=== PATIENT | male | born 1980 | race African-American/Black ===

== ENCOUNTER 2021-04-14 19:11 | Emergency (ER) | payer OTHER, SELFPAY ==
[2021-04-14 19:20] VITALS: BP 116/74; PULSE 63; RESP 16; TEMP 36.6; O2SAT 98; BMI 29.7
--- NOTE | 2021-04-14 20:12 | ED.URI ---
HPI - URI/Sore Throat General Chief Complaint: Upper Respiratory Symptoms Stated Complaint: trouble swallowing Time Seen by Provider: 04/14/21 20:00 Source: patient Mode of arrival: ambulatory Limitations: no limitations History of Present Illness HPI Narrative: Patient nondistended against COVID-19 comes here for sore throat with painful swallowing for last 3 days no fever no shortness of breath or body aches Related Data Previous Rx's Medication Instructions Recorded amoxicillin 875 mg-potassium 1 tab PO BID #20 tab 04/14/21 clavulanate 125 mg tablet (Augmentin) Allergies Allergy/AdvReac Type Severity Reaction Status Date / Time No Known Allergies Allergy Verified 04/14/21 19:23 Review of Systems Review of Systems: Yes all other systems are reviewed and are negative [facility] Social History Social History Advance Directives: No Advance Directives Information Provided: No Physical Exam Vital Signs: Vital Signs: Last Vital Signs Temp 98 F 04/14/21 19:20 Pulse 63 04/14/21 19:20 Resp 16 04/14/21 19:20 BP 116/74 04/14/21 19:20 Pulse Ox 98 04/14/21 19:20 Body Mass Index 29.7 Const: General: comfortable HENMT: Mouth: Normal oral and palatal mucosa present Throat: Yes posterior oropharynx abnormal (Slight erythema) and Yes postnasal drainage Resp: Effort & Inspection: normal respiratory effort Auscultation: clear to auscultation bilaterally Cardio: Rate: regular rate Rhythm: regular rhythm Heart sounds: S1 normal heart sound present and S2 normal heart sound present MDM - URI/Sore Throat Differential Diagnosis Differential diagnosis: Likely upper respiratory infection Lab Data Attestation: I reviewed the patient's lab results. Labs: Lab Results 04/14/21 04/14/21 Range/Units 20:00 20:00 COVID-19 (ALCIDES) Negative (Negative) COVID-19 Clin Com See Note S. pyogenes GrpA HANK Negative (Negative) Discharge Plan Discharge Clinical Impression: Upper respiratory infection Qualifiers: URI type: acute nasopharyngitis (common cold) Qualified Code(s): J00 - Acute nasopharyngitis [common cold] Patient Disposition: Home, Self-Care Instructions: Upper Respiratory Infection (ED) Additional Instructions: Your strep and COVID-19 is negative Take antibiotic as advised Prescriptions: New amoxicillin-pot clavulanate [Augmentin] 875-125 mg tablet 1 tab PO BID Qty: 20 RF: 0
[2021-04-14 20:20] LABS: IDNOW Serial# 08D9AD1C; Strep A Nucleic Acid Negative (Negative)
[2021-04-14 20:27] LABS: COVID-19 Test Negative (Negative); IDNOW Serial# 9DD0AD1C
== END 2021-04-14 20:55 | disposition home or self-care (01) ==
PROVIDERS: Emergency Provider Internal Medicine
DX: J00 Acute nasopharyngitis [common cold] (principal); Z20.822 Contact with and (suspected) exposure to COVID-19
CPT/HCPCS: 36415; 87635; 87651; 99283

== ENCOUNTER 2021-07-29 04:29 | Emergency (ER) | payer OTHER, SELFPAY ==
[2021-07-29 04:31] VITALS: BP 130/74; PULSE 68; RESP 18; TEMP 36.8; O2SAT 96; BMI 29.8
[2021-07-29 04:47] LABS: COVID-19 Test Positive (Negative)
== END 2021-07-29 06:29 | disposition left against medical advice (07) ==
PROVIDERS: Emergency Provider Emergency Medicine
DX: U07.1 COVID-19 (principal)
CPT/HCPCS: 36415; 87635; 99282; 99283

== ENCOUNTER 2021-08-23 08:50 | Emergency (ER) | payer OTHER, SELFPAY ==
--- NOTE | ~2021-08-23 | XR_ITS ---
EXAMINATION: XR KNEE, LEFT CLINICAL INFORMATION: Pain and swelling COMPARISON: 01/19/2020 TECHNIQUE: Four views of the left knee. FINDINGS: No fracture or dislocation. Moderate tricompartmental degenerative changes with cartilage space narrowing and marginal osteophyte formation. Small suprapatellar joint effusion. XR/XR knee LT 4V IMPRESSION: Moderate tricompartmental degenerative changes. Suspect a suprapatellar joint effusion.
[2021-08-23 08:56] VITALS: BP 148/97; PULSE 80; RESP 18; TEMP 36.8; O2SAT 97; BMI 28.3
--- NOTE | 2021-08-23 09:24 | ED.LOWEXIN ---
HPI - Extremity Injury (Lower) General Chief Complaint: Extremity Injury, Lower Stated Complaint: Swollen l leg Time Seen by Provider: 08/23/21 09:23 Source: patient Mode of arrival: ambulatory Limitations: no limitations History of Present Illness HPI Narrative: 41-year-old male with a history of arthritis in his left knee and a history of fluid in his left knee presents for left knee swelling that started yesterday. It is hard for him to bend his leg, the last time this happened was 8 months ago, and the last time before that was 1 year ago. 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 He was referred to Orthopedics but was unable to see Orthopedics due to his work schedule. No trauma Related Data Previous Rx's Medication Instructions Recorded amoxicillin 875 mg-potassium 1 tab PO BID #20 tab 04/14/21 clavulanate 125 mg tablet (Augmentin) prednisone 20 mg tablet 60 mg PO DAILY 5 Days #15 tab 08/23/21 Allergies Allergy/AdvReac Type Severity Reaction Status Date / Time No Known Allergies Allergy Verified 08/23/21 08:56 Review of Systems Review of Systems: Constitutional : No Weight loss, No Fever, No Chills, No Night Sweats,No Fatigue, No Malaise ENT/Mouth : No Hearing loss, No Ear Pain, No Nasal Congestion, NoSinus Pain, No Hoarseness, No sore throat, No Rhinorrhea, NoSwallowing Difficulty Eyes: No Eye Pain, No Swelling, No Redness, No Foreign Body, NoDischarge, No Vision Changes Cardiovascular : No Chest Pain, No SOB, No Dyspnea on Exertion, NoOrthopnea, No Edema, No Palpitations Respiratory : No Cough, No Sputum, No Wheezing, No Smoke Exposure, No Dyspnea Gastrointestinal : No Nausea, No Vomiting, No Diarrhea, NoConstipation, No abdominal Pain, No Hematochezia, No Melena Genitourinary : no irregular bleeding, No Dysuria, No UrinaryFrequency, No Hematuria, No Urinary Incontinence, No Urgency, No FlankPain, No Urinary Flow Changes, No Hesitancy Musculoskeletal : left knee pain, left knee swelling Skin : No Skin Lesions, No rash Neuro : No Weakness, No Numbness, No Paresthesias, No Loss ofConsciousness, No Dizziness, No Headache Psych : No Anxiety/Panic, No Depression, No SI/HI/AH/VH, No Social Issues, Heme/Lymph: No Bruising, No Bleeding,No Lymphadenopathy Endocrine : No Polyuria, No Polydipsia, No Temperature Intolerance Yes all other systems are reviewed and are negative PMFSH Social History Social History Advance Directives: No Advance Directives Information Provided: No Physical Exam Vital Signs: Vital Signs: Last Vital Signs Temp 98.2 F 08/23/21 08:56 Pulse 80 08/23/21 08:56 Resp 18 08/23/21 08:56 BP 148/97 H 08/23/21 08:56 Pulse Ox 97 08/23/21 08:56 BMI result Body Mass Index 28.3 Const: General: cooperative, no acute distress, well developed, alert and awake Nutritional Appearance: well nourished Orientation/consciousness: patient oriented x3 Limitations: no limitations HENMT: Head: Yes normal to inspection, Yes normocephalic and Yes atraumatic Ears: hearing grossly normal bilaterally, external ears normal, TM's normal bilaterally and EAC's normal General nose exam: Normal external nose present Face and sinus: Yes normal facial exam and Yes sinuses nontender Mouth: Normal oral and palatal mucosa present Throat: Yes posterior oropharynx normal Eyes: Conjunctivae: conjunctivae normal Pupils: Equal, round and reactive pupils present EOM: EOMs intact bilaterally Neck: Neck: Yes full ROM, Yes no lymphadenopathy and Yes supple Resp: Effort & Inspection: normal respiratory effort and able to speak in complete sentences Auscultation: clear to auscultation bilaterally, no crackles, no rales, no rhonchi and no wheezes Cardio: Rate: regular rate Rhythm: regular rhythm Heart sounds: S1 normal heart sound present and S2 normal heart sound present GI: Inspection: Yes normal to inspection Palpation (GI): Soft to palpation, nontender, no guarding and not rigid Percussion: Yes normal to percussion Auscultation: normal bowel sounds Skin: General skin exam: no rashes or lesions noted Neuro: General: patient oriented x3, tone normal and moves all extremities Cranial nerves: Yes Equal, round and reactive pupils present Extrem: Left lower extremity: full ROM, normal capillary refill and knee Details: tenderness Location: of the lateral joint line and of the pre-patellar area, swelling Location: of the patella (suprapatellar) and of the popliteal fossa and warmth Location: laterally (mild); No no edema Psych: Appearance: grossly normal Affect: normal affect Attitude: cooperative Thought process: Normal thought process present Course Course Course Narrative: 41-year-old male with history of left knee effusion and possible left knee arthritis presents with left knee pain and mild swelling. on exam, patient has mild joint effusion over left prepatellar area, with lateral joint line tenderness. Patient has intact lower extremity motor strength, sensation, DTRs, and distal pulses. Patient is able to extend and flex his knee completely. XR/XR knee LT 4V IMPRESSION: Moderate tricompartmental degenerative changes. Suspect a suprapatellar joint effusion. Discussed with patient that he should see Orthopedics, patient is unable to do this due to work schedule. Provided knee immobilizer, crutches, prednisone. Counseled return to be seen if pain worsens, or joint becomes red hot or more swollen. Patient had all his questions answered, verbalized agreement and understanding of the plan knee immobilizer, crutches, counseled RICE, prednisone Discharge Plan Discharge Clinical Impression: Effusion of knee joint, left Patient Disposition: Home, Self-Care Instructions: Swollen Knee Joint (ED), R.I.C.E. Treatment (ED) Additional Instructions: please rest, ice, and compress your knee with the knee immobilizer. Please use your crutches as much as possible. As we discussed, you will need to see orthopedics sometime in the future. I would refer you to them today but your work schedule not permit it if you have sudden left leg weakness, fevers, redness swelling or warmth over your left knee, please return to be seen please take the prednisone I prescribed in the morning with food. Please return to emergency room for any new or concerning symptoms Prescriptions: New prednisone 20 mg tablet 60 mg PO DAILY 5 Days Qty: 15 0RF No Action amoxicillin-pot clavulanate [Augmentin] 875-125 mg tablet 1 tab PO BID Qty: 20 0RF Stand Alone Forms: Work/School Release
== END 2021-08-23 10:20 | disposition home or self-care (01) ==
PROVIDERS: Emergency Provider Emergency Medicine
DX: M25.462 Effusion, left knee (principal)
CPT/HCPCS: 73564; 99283

== ENCOUNTER 2021-10-08 12:10 | Emergency (ER) | payer OTHER, SELFPAY ==
[2021-10-08 12:15] VITALS: BP 155/92; PULSE 69; RESP 20; TEMP 37.1; O2SAT 97; BMI 29.7
--- NOTE | 2021-10-08 13:16 | ED_ITS ---
HPI - General Adult General Chief complaint: Allergic Reaction Stated complaint: allergic reaction/rash Time Seen by Provider: 10/08/21 13:16 Source: patient Mode of arrival: ambulatory Limitations: no limitations History of Present Illness HPI narrative: Patient with a few days of itching to arms, legs and buttocks. He has a history of severe eczema. Despite taking benadryl and cortisone he has had no relief. Onset (ago): day(s) Location: chest, back, upper extremity and lower extremity Severity: moderate Pain Consistency: intermittent Relieving factors: none Associated symptoms: denies other symptoms Related Data Previous Rx's Medication Instructions Recorded amoxicillin 875 mg-potassium 1 tab PO BID #20 tab 04/14/21 clavulanate 125 mg tablet (Augmentin) prednisone 20 mg tablet 60 mg PO DAILY 5 Days #15 tab 08/23/21 hydroxyzine pamoate 25 mg capsule 25 mg PO TID PRN #14 cap 10/08/21 (Vistaril) prednisone 20 mg tablet 60 mg PO DAILY #15 tab 10/08/21 Allergies Allergy/AdvReac Type Severity Reaction Status Date / Time No Known Allergies Allergy Verified 08/23/21 08:56 Review of Systems Constitutional: Constitutional: Reports no additional constitutional complaints Eyes: Eyes: Reports no additional eye complaints ENT: Denies dizziness Cardiovascular: Cardiovascular: Reports no additional cardiovascular complaints Respiratory: Respiratory: Reports as per HPI Gastrointestinal: Gastrointestinal: Reports no additional gastrointestinal complaints Musculoskeletal: Musculoskeletal: Reports no additional musculoskeletal complaints Integumentary/Breasts: Skin/Breast: Denies rash Neurologic: Reports system reviewed and no additional complaints, except as documented, Denies dizziness and Denies Sensory deficit (Neuro) Psychiatric: Psychiatric: Denies anxiety [facility] Social History Social History Advance Directives: No Advance Directives Information Provided: No Physical Exam ED Vital Signs: Vital Signs - 24 hr 10/08/21 12:15 Temperature 98.8 F Pulse Rate 69 Respiratory Rate 20 Blood Pressure 155/92 H Pulse Oximetry 97 BMI result Body Mass Index 29.7 Const General: healthy appearing Nutritional Appearance: average body habitus Orientation/consciousness: oriented to person and patient oriented x3 Limitations: no limitations HENMT Head: Yes normal to inspection Ears: external ears normal General nose exam: Normal external nose present Mouth: Normal oral and palatal mucosa present and oropharynx normal Throat: Yes posterior oropharynx normal Eyes General: appearance normal, both eyes and all related structures Neck Neck: Yes normal visual inspection Chest Chest palpation & inspection: normal inspection of the chest Resp Auscultation: clear to auscultation bilaterally Cardio Jugular venous distension: no JVD Rate: regular rate Rhythm: regular rhythm Heart sounds: S1 normal heart sound present and S2 normal heart sound present GI Inspection: Yes normal to inspection Palpation (GI): Soft to palpation, nontender and No hepatosplenomegaly present Auscultation: normal bowel sounds General: Yes no CVA tenderness Back/Spine/Pelvis Back: no CVA tenderness Skin Other: small areas of papules no diffuse break out Neuro General: oriented to person and patient oriented x3 Cranial nerves: Yes CN's II-XII intact bilaterally Motor exam (neuro): 5/5 motor strength present throughout Sensory Exam: No Sensory deficit (Neuro) Extrem General: Yes normal to inspection Psych Appearance: grossly normal Course Reevaluation(s) Reevaluation #1: I believe this is an eczema breakout and we will start prednisone and visatril Time: 13:24 Discharge Plan Discharge Clinical Impression: Eczema Patient Disposition: Home, Self-Care Instructions: Dermatitis (ED) Prescriptions: New prednisone 20 mg tablet 60 mg PO DAILY Qty: 15 0RF hydroxyzine pamoate [Vistaril] 25 mg capsule 25 mg PO TID PRN (Reason: itching) Qty: 14 0RF No Action amoxicillin-pot clavulanate [Augmentin] 875-125 mg tablet 1 tab PO BID Qty: 20 0RF prednisone 20 mg tablet 60 mg PO DAILY 5 Days Qty: 15 0RF Referrals: Physician,None [Primary Care Provider] - 10 days
== END 2021-10-08 13:31 | disposition home or self-care (01) ==
PROVIDERS: Emergency Provider Emergency Medicine
DX: L30.9 Dermatitis, unspecified (principal)
CPT/HCPCS: 99283

== ENCOUNTER 2021-10-27 06:54 | Emergency (ER) | payer OTHER, SELFPAY ==
[2021-10-27 07:04] VITALS: BP 138/75; PULSE 55; RESP 16; TEMP 37.1; O2SAT 97; BMI 30.9
--- NOTE | 2021-10-27 09:09 | ED.GENADULT ---
HPI - General Adult General Chief complaint: General Medical Stated complaint: rash Time Seen by Provider: 10/27/21 09:04 Source: patient Mode of arrival: ambulatory Limitations: no limitations History of Present Illness HPI narrative: 41-year-old male with a history of eczema here with reports of eczema symptoms for the last 2 days. Patient tells me he does not have a primary care doctor or satellite communications operator. He was seen here several weeks ago for similar symptoms and had a course of prednisone which seemed to help his symptoms. Patient denies using any topical steroids. He does try to limit bathing, use cool water and apply moisturizers. Related Data Previous Rx's Medication Instructions Recorded amoxicillin 875 mg-potassium 1 tab PO BID #20 tab 04/14/21 clavulanate 125 mg tablet (Augmentin) prednisone 20 mg tablet 60 mg PO DAILY 5 Days #15 tab 08/23/21 hydroxyzine pamoate 25 mg capsule 25 mg PO TID PRN #14 cap 10/08/21 (Vistaril) prednisone 20 mg tablet 60 mg PO DAILY #15 tab 10/08/21 hydrocortisone 2.5 % topical cream 1 appl TOPICAL QID PRN #453.6 g 10/27/21 prednisone 20 mg tablet 60 mg PO DAILY #15 tab 10/27/21 Allergies Allergy/AdvReac Type Severity Reaction Status Date / Time No Known Allergies Allergy Verified 10/27/21 07:07 Review of Systems Review of Systems: Yes all other systems are reviewed and are negative Constitutional: Constitutional: Reports no additional constitutional complaints, Denies body ache(s), Denies chills, Denies fever(s), Denies headache(s) and Denies weakness Eyes: Eyes: Reports no additional eye complaints and Denies change in vision ENT: Reports system reviewed and no additional complaints, except as documented, Denies dizziness, Denies headache(s), Denies nasal congestion, Denies nasal discharge and Denies neck pain Cardiovascular: Cardiovascular: Reports no additional cardiovascular complaints, Denies chest pain, Denies leg edema and Denies dyspnea Respiratory: Respiratory: Reports no additional respiratory complaints, Denies cough and Denies dyspnea Gastrointestinal: Gastrointestinal: Reports no additional gastrointestinal complaints, Denies abdominal pain, Denies diarrhea, Denies nausea and Denies vomiting Genitourinary: Genitourinary: Denies urinary incontinence Musculoskeletal: Musculoskeletal: Reports no additional musculoskeletal complaints, Denies back pain, Denies arthralgias, Denies joint swelling, Denies neck pain, Denies numbness and Denies tingling Integumentary/Breasts: Skin/Breast: Reports system reviewed and no additional complaints, except as docu and Reports rash Neurologic: Reports system reviewed and no additional complaints, except as documented, Denies dizziness, Denies headache(s), Denies numbness, Denies tingling and Denies weakness PMFSH Past Medical History Attestation statement: The following information was validated with the patient. Source: old records reviewed and nursing notes reviewed Social History Social History Advance Directives: No Advance Directives Information Provided: No Physical Exam ED Vital Signs: Vital Signs - 24 hr 10/27/21 07:04 Temperature 98.7 F Pulse Rate 55 Respiratory Rate 16 Blood Pressure 138/75 Pulse Oximetry 97 BMI result Body Mass Index 30.9 Const General: cooperative, healthy appearing, comfortable and no acute distress Orientation/consciousness: patient oriented x3 Limitations: no limitations HENMT Head: Yes normal to inspection Ears: hearing grossly normal bilaterally General nose exam: Normal external nose present Face and sinus: Yes normal facial exam Mouth: Normal oral and palatal mucosa present Teeth and gingiva: dentition normal Throat: Yes posterior oropharynx normal Eyes General: appearance normal, both eyes and all related structures Pupils: Equal, round and reactive pupils present Neck Neck: Yes normal visual inspection, Yes full ROM, Yes no lymphadenopathy and Yes no meningeal signs Chest Chest palpation & inspection: normal inspection of the chest Resp Effort & Inspection: normal respiratory effort Cardio Peripheral pulses: Peripheral pulses 2+ throughout GI Inspection: Yes normal to inspection Back/Spine/Pelvis Thoracic/Lumbar Spine: thoracic and lumbar spine normal to inspection Skin Other: To the extremities there are eczema like like lesions over the flexor surfaces. Neuro General: patient oriented x3 and no meningeal signs Cranial nerves: Yes Equal, round and reactive pupils present Cognition (Neuro): normal cognition Course Course Course Narrative: 41-year-old male here with reports of eczema exacerbation for the last few days despite supportive care at home. Exam is consistent with eczema. Patient will be given a course of prednisone and a prescription for topical care to corticosteroid. He does have insurance but is not her primary care doctor. He recommended he establish a primary care doctor and seek a satellite communications operator. Reviewed worrisome signs and symptoms and when to return to the emergency department. Comfortable discharge home. Medical Decision Making Medical Records Medical records reviewed: Yes I reviewed the patient's medical records. Discharge Plan Discharge Clinical Impression: Atopic dermatitis Patient Disposition: Home, Self-Care Instructions: Eczema (ED), Dermatitis (ED) Additional Instructions: Limit bathing Use lukewarm water Keep moisturized with an emollient Prescriptions: New hydrocortisone 2.5 % cream 1 appl topical QID PRN (Reason: rash) Qty: 453.6 0RF prednisone 20 mg tablet 60 mg PO DAILY Qty: 15 0RF No Action amoxicillin-pot clavulanate [Augmentin] 875-125 mg tablet 1 tab PO BID Qty: 20 0RF prednisone 20 mg tablet 60 mg PO DAILY 5 Days Qty: 15 0RF prednisone 20 mg tablet 60 mg PO DAILY Qty: 15 0RF hydroxyzine pamoate [Vistaril] 25 mg capsule 25 mg PO TID PRN (Reason: itching) Qty: 14 0RF Referrals: Physician,None [Primary Care Provider] - 2 days Interventions: ED Discharge Assessment Last Done: 10/27/21 09:21 Discharge Date/Time: 10/27/21 09:22
== END 2021-10-27 09:22 | disposition home or self-care (01) ==
PROVIDERS: Emergency Provider Emergency Medicine
DX: L20.9 Atopic dermatitis, unspecified (principal); R21 Rash and other nonspecific skin eruption; Z79.899 Other long term (current) drug therapy
CPT/HCPCS: 99283

== ENCOUNTER 2022-02-05 23:34 | Observation (INO) | payer OTHER, SELFPAY ==
--- NOTE | 2022-02-05 | ECG_ITS ---
Test Reason : WEAKNESS Blood Pressure : / mmHG Vent. Rate : 057 BPM Atrial Rate : 057 BPM P-R Int : 176 ms QRS Dur : 084 ms QT Int : 452 ms P-R-T Axes : 067 064 050 degrees QTc Int : 439 ms Sinus bradycardia Otherwise normal ECG No previous ECGs available Referred By: Generic ED Physician Electronically Signed By:CATIE PINEDA MD
--- NOTE | ~2022-02-05 | CT_ITS ---
EXAMINATION: CT HEAD WITHOUT CONTRAST (STROKE PROTOCOL) INDICATION INFORMATION: Left upper extremity weakness COMPARISON: None TECHNIQUE: Noncontrast CT of the head was performed. DLP: 659 mGy-cm DOSE LOWERING TECHNIQUES: This CT examination was performed using dose optimization techniques as appropriate, variously including the following: - Automated exposure control - Adjustment of mA and/or kV according to patient size (this includes techniques or standardized protocols for targeted exams were dose is matched to indication/reason for exam; i.e. extremities or head) - Use of iterative reconstruction technique FINDINGS: There is no evidence of acute intracranial hemorrhage or territorial infarction. No abnormal mass-effect or midline shift is seen. [place]oya to white matter differentiation is well preserved. No extra-axial fluid collections are identified. The ventricles are normal in size. There is no abnormal attenuation within the brain parenchyma. The osseous structures and soft tissues are normal. The mastoid air cells and visualized portions of the paranasal sinuses are well-aerated. CT/CT head for stroke IMPRESSION: No acute intracranial findings. This stroke protocol result was discussed with Dr. Hoffman on 02/06/2022 12:18 AM.
--- NOTE | ~2022-02-05 | CT_ITS ---
EXAMINATION: CT ANGIOGRAM NECK AND HEAD CLINICAL INFORMATION: TIA COMPARISON: Noncontrast head CT from earlier today TECHNIQUE: Test bolus sequences followed by intravenous administration 70 mL of Omnipaque 350. Helical imaging was performed in the axial plane from the thoracic inlet to the skull vertex. Delayed postcontrast imaging of the head was also performed. The data was processed at the medical technologist generalist's workstation for generation of MIP sequences. Angled MIPs and volume rendered reformatted images were also generated at an offline 3D workstation. Stenoses are assessed in accordance with NASCET criteria unless otherwise indicated. DOSE LOWERING TECHNIQUES: This CT examination was performed using dose optimization techniques as appropriate, variously including the following: - Automated exposure control - Adjustment of mA and/or kV according to patient size (this includes techniques or standardized protocols for targeted exams were dose is matched to indication/reason for exam; i.e. extremities or head) - Use of iterative reconstruction technique DLP: 1518 mGy-cm FINDINGS: Neck CTA: There is a classic 3 vessel branching pattern of the aortic arch. Normal appearance of the visualized aortic arch and proximal branches. No evidence of stenosis at the branch origins. Both vertebral arteries are widely patent throughout their extracranial cervical course. Normal appearance of the common and internal carotid arteries without focal stenosis. Brain CTA: Normal appearance of the intradural vertebral arteries. Normal appearance of the basilar and superior cerebellar arteries. Normally opacified posterior communicating arteries. Normal appearance of the posterior cerebral arteries bilaterally. Normal appearance of the intradural internal carotid arteries without focal stenosis. Normal appearance of the anterior cerebral and middle cerebral arteries without focal occlusion or stenosis. Normal anterior communicating artery. Normal arborization of the middle cerebral arteries. CT Head: No intracranial mass, hemorrhage, extra-axial collection, or midline shift. The brewer-white matter differentiation is preserved. No pathologic intra-axial enhancement or regional oligemia. No hydrocephalus.. Mild mucosal thickening of the right maxillary sinus. Mastoid air cells remain well aerated. CT Neck: The thyroid gland and remaining cervical soft tissues are normal in appearance. There are mild degenerative changes of the mid to lower cervical spine with endplate osteophytes. Upper Chest: There is mild emphysema at the lung apices. CT/CT angio head neck IMPRESSION: No hemodynamically significant stenosis in the major arteries of the neck. No large vessel occlusion or significant stenosis in the intracranial circulation.
[2022-02-05 23:39] VITALS: BP 154/97; PULSE 62; RESP 15; TEMP 36.3; O2SAT 98; BMI 28.7
[2022-02-05 23:52] VITALS: PULSE 56; RESP 23; O2SAT 99
--- NOTE | 2022-02-05 23:57 | ED.NEUROSD ---
HPI - Neuro Symptoms/Deficit General Chief Complaint: Stroke Stated Complaint: Not feeling good/Bodyaches Time Seen by Provider: 02/05/22 23:57 Source: patient Mode of arrival: ambulatory History of Present Illness HPI Narrative: 41-year-old male with history of hypertension and does not take medications. states he has had a left-sided headache x3 days that is not been associated with nausea or visual disturbance and states that after going to [employer] today he developed weakness on his left side and numbness approximately 20 minutes ago. Patient is noted to be ambulatory in triage. He endorses marijuana use but denies alcohol or drug use. He otherwise denies fever, chills, chest pain/palpitations or shortness of breath. Related Data Home Medications Medication Instructions Recorded Confirmed No Known Home Meds 02/06/22 02/06/22 Allergies Allergy/AdvReac Type Severity Reaction Status Date / Time No Known Allergies Allergy Verified 10/27/21 07:07 Review of Systems Review of Systems: Pertinent positives and negatives as stated in HPI 10 point review of systems is otherwise negative. PMFSH Past Medical History Source: nursing notes reviewed Medical History (Updated 02/06/22 @ 03:18 by Shayy Hoffman MD) HTN (hypertension) Social History Social History Advance Directives: No Physical Exam Vital Signs: Vital Signs: Last Vital Signs Temp 98.2 F 02/06/22 00:17 Pulse 55 02/06/22 00:17 Resp 18 02/06/22 00:17 BP 164/98 H 02/06/22 00:10 Pulse Ox 98 02/06/22 00:17 O2 Del Method 02/06/22 00:17 BMI result Body Mass Index 28.7 VITAL SIGNS: Reviewed. GENERAL: Well developed, well nourished, in no acute distress. HEAD: Normocephalic/atraumatic EYES: PERRLA, EOMI, no nystagmus EARS: Ext canals without abnormality OROPHARYNX: no oral lesions noted, posterior pharynx clear LUNGS: Normal breath sounds. No adventitious sounds or accessory muscle use. SpO2<98> CARDIOVASCULAR: Regular rate and rhythm without noted murmurs, no JVD or lower extremity edema. ABDOMEN: Soft, non-tender, non-distended with bowel sounds. MUSCULOSKELETAL: No tenderness, deformities, or effusions noted on gross inspection. EXTREMITIES: No cyanosis, clubbing or edema. SKIN: Inspection of the skin reveals no rashes, ulcerations, jaundice, pallor, or petechiae. NEUROLOGIC: Alert and oriented x 4. No facial asymmetry, no pronator drift, however hand estimator and drafter supervisor are unequal with noted weakness in the left upper extremity, otherwise, cranial nerves 2-12 are grossly intact, heel to galdamez is noted to be intact. Course Course Course Narrative: 41-year-old male with history and clinical presentation concerning for hypertensive urgency related symptoms verses acute stroke. Stroke protocol was initiated. Review of all investigations otherwise negative for acute findings. On re-evaluation patient has had complete resolution of his symptoms and is feeling better, but concern regarding possible TIA in the setting of uncontrolled hypertension. I discussed this case with the inpatient hospitalist who accepts admission under observation. Patient was informed of all plans and results. No evidence to suggest radiculopathy. Reevaluation(s) Reevaluation #1: Radiology reports nothing acute. Time: 07:14 Reevaluation #2: I discussed case with Dr. Rhodes, and described patient's ability to control his extremity, absence of any ataxia or pronator drift and negative findings on the CT scan and the recommendation is no tPA at this time, but provided patient with aspirin due to mild findings. Time: 00:25 [facility] - Neuro Symptoms/Deficit Lab Data Result diagrams: 02/05/22 23:50 02/05/22 23:50 Labs: Lab Results 02/05/22 02/05/22 02/05/22 Range/Units 23:50 23:50 23:50 WBC 8.9 (4.8-10.8) X10*3/uL RBC 4.95 (4.60-5.80) X10*6/uL Hgb 14.2 (14.0-18.0) g/dl Hct 42.5 (42.0-52.0) % MCV 85.9 (80.0-98.0) fL MCH 28.7 (27.0-33.0) pg MCHC 33.4 (31.0-36.0) g/dl RDW 13.5 (11.0-16.0) % Plt Count 191 (160-400) X10*3/uL MPV 9.9 (9.4-12.4) fL Immature Gran % (Auto) 0.1 (0.0-0.4) % Neut % (Auto) 59.9 (45-73) % Lymph % (Auto) 29.1 (20-40) % [place] % (Auto) 9.9 (2-11) % Eos % (Auto) 0.6 (0-4) % Baso % (Auto) 0.4 (0-2) % Lymph # (Auto) 2.6 (1.2-4.9) X10*3/uL [place] # (Auto) 0.9 (0.1-1.2) X10*3/uL Eos # (Auto) 0.1 (0.0-0.4) X10*3/uL Baso # (Auto) 0.0 (0.0-0.2) X10*3/uL Abs Immat Gran (auto) 0.01 (0.00-0.03) X10*3/uL Absolute Neuts (auto) 5.3 (2.0-8.3) x10*3/uL Absolute Nucleated RBC 0.000 (0.0-0.012) X10*3/uL Nucleated RBC % (auto) 0.0 (0.0-0.2) /100WBC PT 11.7 (10.0-13.1) SEC INR 1.0 (0.9-1.1) APTT (24.1-38.0) SEC Sodium 140 (135-145) mmol/L Potassium 4.0 (3.3-5.1) mmol/L Chloride 107 (96-108) mmol/L Carbon Dioxide 25 (22-29) mmol/L Anion Gap 12 (12-20) BUN 8 L (9-16) mg/dL Creatinine 1.25 (0.5-1.4) mg/dL Estim Creat Clear Calc 89.8 Estimated GFR > 60 POC Glucose (60-115) mg/dL Random Glucose 87 (60-115) mg/dL Calcium 9.2 (8.4-10.2) mg/dL Total Bilirubin 0.6 (0.0-1.0) mg/dL AST 26 (5-37) U/L ALT 21 (0-40) U/L Alkaline Phosphatase 77 (39-117) U/L Total Creatine Kinase 414 H (38-174) U/L Troponin I High Sens (<3.5-35.0) ng/L Total Protein 7.3 (6.5-8.0) g/dL Albumin 4.7 (3.5-5.0) g/dL COVID-19 ([facility]) (Negative) COVID-19 Clin Com 02/05/22 02/05/22 02/06/22 Range/Units 23:50 23:50 00:17 WBC (4.8-10.8) X10*3/uL RBC (4.60-5.80) X10*6/uL Hgb (14.0-18.0) g/dl Hct (42.0-52.0) % MCV (80.0-98.0) fL MCH (27.0-33.0) pg MCHC (31.0-36.0) g/dl RDW (11.0-16.0) % Plt Count (160-400) X10*3/uL MPV (9.4-12.4) fL Immature Gran % (Auto) (0.0-0.4) % Neut % (Auto) (45-73) % Lymph % (Auto) (20-40) % [place] % (Auto) (2-11) % Eos % (Auto) (0-4) % Baso % (Auto) (0-2) % Lymph # (Auto) (1.2-4.9) X10*3/uL [place] # (Auto) (0.1-1.2) X10*3/uL Eos # (Auto) (0.0-0.4) X10*3/uL Baso # (Auto) (0.0-0.2) X10*3/uL Abs Immat Gran (auto) (0.00-0.03) X10*3/uL Absolute Neuts (auto) (2.0-8.3) x10*3/uL Absolute Nucleated RBC (0.0-0.012) X10*3/uL Nucleated RBC % (auto) (0.0-0.2) /100WBC PT (10.0-13.1) SEC INR (0.9-1.1) APTT 33.4 (24.1-38.0) SEC Sodium (135-145) mmol/L Potassium (3.3-5.1) mmol/L Chloride (96-108) mmol/L Carbon Dioxide (22-29) mmol/L Anion Gap (12-20) BUN (9-16) mg/dL Creatinine (0.5-1.4) mg/dL Estim Creat Clear Calc Estimated GFR POC Glucose (60-115) mg/dL Random Glucose (60-115) mg/dL Calcium (8.4-10.2) mg/dL Total Bilirubin (0.0-1.0) mg/dL AST (5-37) U/L ALT (0-40) U/L Alkaline Phosphatase (39-117) U/L Total Creatine Kinase (38-174) U/L Troponin I High Sens 8.2 (<3.5-35.0) ng/L Total Protein (6.5-8.0) g/dL Albumin (3.5-5.0) g/dL COVID-19 ([facility]) Negative (Negative) COVID-19 Clin Com See Note 02/06/22 Range/Units 00:52 WBC (4.8-10.8) X10*3/uL RBC (4.60-5.80) X10*6/uL Hgb (14.0-18.0) g/dl Hct (42.0-52.0) % MCV (80.0-98.0) fL MCH (27.0-33.0) pg MCHC (31.0-36.0) g/dl RDW (11.0-16.0) % Plt Count (160-400) X10*3/uL MPV (9.4-12.4) fL Immature Gran % (Auto) (0.0-0.4) % Neut % (Auto) (45-73) % Lymph % (Auto) (20-40) % [place] % (Auto) (2-11) % Eos % (Auto) (0-4) % Baso % (Auto) (0-2) % Lymph # (Auto) (1.2-4.9) X10*3/uL [place] # (Auto) (0.1-1.2) X10*3/uL Eos # (Auto) (0.0-0.4) X10*3/uL Baso # (Auto) (0.0-0.2) X10*3/uL Abs Immat Gran (auto) (0.00-0.03) X10*3/uL Absolute Neuts (auto) (2.0-8.3) x10*3/uL Absolute Nucleated RBC (0.0-0.012) X10*3/uL Nucleated RBC % (auto) (0.0-0.2) /100WBC PT (10.0-13.1) SEC INR (0.9-1.1) APTT (24.1-38.0) SEC Sodium (135-145) mmol/L Potassium (3.3-5.1) mmol/L Chloride (96-108) mmol/L Carbon Dioxide (22-29) mmol/L Anion Gap (12-20) BUN (9-16) mg/dL Creatinine (0.5-1.4) mg/dL Estim Creat Clear Calc Estimated GFR POC Glucose 102 (60-115) mg/dL Random Glucose (60-115) mg/dL Calcium (8.4-10.2) mg/dL Total Bilirubin (0.0-1.0) mg/dL AST (5-37) U/L ALT (0-40) U/L Alkaline Phosphatase (39-117) U/L Total Creatine Kinase (38-174) U/L Troponin I High Sens (<3.5-35.0) ng/L Total Protein (6.5-8.0) g/dL Albumin (3.5-5.0) g/dL COVID-19 ([facility]) (Negative) COVID-19 Clin Com ECG Data Attestation: I personally reviewed and interpreted this ECG as follows: Prior ECG tracings: not available for review Interpretation: Sinus bradycardia, HR-57, no STEMI, ND/QRS/QTC are within normal limits. NIH Stroke Scale Time: 23:55 Level of Consciousness: Alert Level of Consciousness Questions: Answers both questions correctly Level of Consciousness Commands: Performs both tasks correctly Best Gaze: Normal Visual: No visual loss Facial Palsy: Normal Motor Arm (Right): No drift Motor Arm (Left): No drift Motor Leg (Right): No drift Motor Leg (Left): No drift Limb Ataxia: Absent Sensory: Normal Best Language: No aphasia Dysarthia: Normal Extinction and Inattention: No abnormality Score: 0 Critical Care Time Critical Care Time Critical Care Time: Yes Total Critical Care Time: 30 Attestation: I personally attest to this time spent taking care of the patient. Discharge Plan Discharge Clinical Impression: LUE weakness, Hypertension Patient Disposition: Admitted As Inpatient Prescriptions: No Action No Known Home Meds
[2022-02-05 23:59] LABS: MANUAL DIFF FLAG NO
[2022-02-06] LABS: Basophils Percent Auto 0.4 % (0-2); Eosinophils Absolute Auto 0.1 X10*3/uL (0.0-0.4); Eosinophils Percent Auto 0.6 % (0-4); Hematocrit 42.5 % (42.0-52.0); Hemoglobin 14.2 g/dl (14.0-18.0); Imm Gran Abs Auto 0.01 X10*3/uL (0.00-0.03); Imm Gran Pct Auto 0.1 % (0.0-0.4); Lymphocytes Absolute Auto 2.6 X10*3/uL (1.2-4.9); Lymphocytes Percent Auto 29.1 % (20-40); Mean Corpuscular HGB Conc 33.4 g/dl (31.0-36.0); Mean Corpuscular Hemoglobin 28.7 pg (27.0-33.0); Mean Corpuscular Volume 85.9 fL (80.0-98.0); Mean Platelet Volume 9.9 fL (9.4-12.4); Monocytes Absolute Auto 0.9 X10*3/uL (0.1-1.2); Monocytes Percent Auto 9.9 % (2-11); Neutrophils Absolute Auto 5.3 x10*3/uL (2.0-8.3); Neutrophils Percent Auto 59.9 % (45-73); Platelet Count 191 X10*3/uL (160-400); Red Blood Count 4.95 X10*6/uL (4.60-5.80); Red Cell Distribution Width 13.5 % (11.0-16.0); White Blood Count 8.9 X10*3/uL (4.8-10.8)
[2022-02-06 00:05] LABS: Prothrombin Time 11.7 SEC (10.0-13.1)
[2022-02-06 00:07] LABS: Stroke Lab Use COMPLETE
[2022-02-06 00:10] VITALS: BP 164/98; PULSE 57; RESP 16; O2SAT 94
[2022-02-06 00:13] LABS: Partial Thromboplastin Time 33.4 SEC (24.1-38.0)
[2022-02-06 00:15] LABS: Alanine Aminotransferase 21 U/L (0-40); Albumin Level 4.7 g/dL (3.5-5.0); Alkaline Phosphatase 77 U/L (39-117); Anion Gap 12 (12-20); Aspartate Amino Transferase 26 U/L (5-37); Bilirubin Total 0.6 mg/dL (0.0-1.0); Blood Urea Nitrogen 8 mg/dL (9-16); Calcium 9.2 mg/dL (8.4-10.2); Carbon Dioxide 25 mmol/L (22-29); Chloride 107 mmol/L (96-108); Creatinine Clr Calc Pharmacy 89.8; Estimated Glomerular Filt Rate > 60; Glucose Random 87 mg/dL (60-115); Sodium 140 mmol/L (135-145); Total Protein 7.3 g/dL (6.5-8.0)
[2022-02-06 00:17] VITALS: PULSE 55; RESP 18; TEMP 36.8; O2SAT 98
[2022-02-06 00:20] LABS: Troponin-I High Sensitivity 8.2 ng/L (<3.5-35.0)
[2022-02-06 00:38] LABS: COVID-19 Test Negative (Negative)
[2022-02-06 00:57] LABS: Glucose, Whole Blood 102 mg/dL (60-115)
[2022-02-06] MEDS: Acetaminophen 325 MG TABLET 975 MG PO (01:13)
[2022-02-06] MEDS: Aspirin 81 MG TAB.CHEW PO (01:13)
[2022-02-06 03:11] VITALS: BP 148/100; PULSE 50; RESP 16; TEMP 36.6; O2SAT 98
[2022-02-06 03:13] LABS: Appearance Urine HAZY; Color Urine YELLOW; Glucose Urine UA NEG (NEG); Leukocyte Esterase Urine NEG (NEG); Nitrite Urine NEG (NEG); Urine Blood NEG (NEG); Urine Ketones NEG (NEG); Urine Protein TRACE MG/DL (NEG-TRACE)
--- NOTE | 2022-02-06 03:47 | PC.NURSE ---
Pt ambulated around ER. No trouble walking, no shortness of breath, steady gait, no lightheadedness.
[2022-02-06 04:00] VITALS: RESP 14
--- NOTE | 2022-02-06 05:33 | P.HPHOSP_ITS ---
History of Present Illness Date of Service: 02/06/22 Chief Complaint: Numbness and weakness on the left side 31-year-old male with past medical history of hypertension who stopped taking his antihypertensives about 5 years ago presents the hospital with complaints of a headache, left facial as well as upper extremity numbness, tingling, as well as weakness for several hours. Patient reports that had blurry vision, and severe left-sided headache with facial numbness, and left upper extremity numbness and weakness which concern him therefore he came to the hospital. Patient denies any slurred speech, no chest pain, no palpitations, no abdominal pain nausea or vomiting, no diarrhea constipation, no urinary symptoms and no lower extremity edema. Patient tells me that he head really high blood pressure prior to coming to the hospital, when I asked him how high he reports high . on arrival to the ED patient's vitals are significant for blood pressure of 154/97, respiratory rate of 23, otherwise vitals stable Labs reviewed, unremarkable patient reports that he is significantly better but still feels numbness of the tips of his fingers on the left neurology was consulted by ED, patient given aspirin and will be admitted for further evaluation Review of Systems Review of Systems: Yes all other systems are reviewed and are negative [facility] Medical History (Updated 02/06/22 @ 05:38 by Kimberlee Mosley MD) HTN (hypertension) Family History (Updated 02/06/22 @ 05:37 by Kimberlee Mosley MD) Father Brain aneurysm Surgical History (Updated 02/06/22 @ 05:37 by Kimberlee Mosley MD) No pertinent past surgical history Social History (Updated 02/06/22 @ 05:37 by Kimberlee Mosley MD) Alcohol intake: current Patient Tobacco Use Status: Never used Tobacco Substance Use Type: Marijuana Advance Directives: No Meds Allergies Allergy/AdvReac Type Severity Reaction Status Date / Time No Known Allergies Allergy Verified 10/27/21 07:07 Active Medications: Current Medications Acetaminophen (Acetaminophen 325 Mg Tablet) 650 mg PO Q6H PRN PRN Reason: Pain, Mild (Pain Scale 1-3) Docusate Sodium (Docusate Sodium 100 Mg Capsule) 100 mg PO DAILY PRN PRN Reason: Constipation Ondansetron HCl (Ondansetron Hcl 4 Mg/2 Ml Vial) 4 mg IVPUSH Q8H PRN PRN Reason: Nausea and Vomiting Sodium Chloride (0.9 % Sodium Chloride Flush 3 Ml Syringe) 3 ml IVFLUSH [facility] Home Medications Medication Instructions Recorded Confirmed Last Taken Type No Known Home Meds 02/06/22 02/06/22 Unknown History Physical Exam Vital Signs and Narrative: Vital Signs: Last Vital Signs Temp 97.8 F 02/06/22 03:11 Pulse 50 02/06/22 03:11 Resp 14 02/06/22 04:00 BP 148/100 H 02/06/22 03:11 Pulse Ox 98 02/06/22 03:11 O2 Del Method 02/06/22 03:11 BMI result Body Mass Index 28.7 Const: General: cooperative and no acute distress Orientation/consciousness: patient oriented x3 Eyes: General: appearance normal, both eyes and all related structures Resp: Effort & Inspection: normal respiratory effort Auscultation: clear to auscultation bilaterally Cardio: Rate: regular rate Rhythm: regular rhythm GI: Palpation (GI): Soft to palpation Auscultation: normal bowel sounds Skin: General skin exam: no rashes or lesions noted Neuro: Other: no neurological deficit cranial nerves 2-12 intact, strength is 5/5 in all extremities General: patient oriented x3 Cognition (Neuro): normal cognition Extrem: General: Yes normal to inspection and Yes no pedal edema Results Labs CBC and Chem 7: 02/05/22 23:50 02/05/22 23:50 Labs: Laboratory Results - last 24 hr 02/05/22 02/05/22 02/05/22 23:50 23:50 23:50 MCV 85.9 MCH 28.7 MCHC 33.4 RDW 13.5 Plt Count 191 MPV 9.9 Immature Gran % (Auto) 0.1 Neut % (Auto) 59.9 Lymph % (Auto) 29.1 [place] % (Auto) 9.9 Eos % (Auto) 0.6 Baso % (Auto) 0.4 Lymph # (Auto) 2.6 [place] # (Auto) 0.9 Eos # (Auto) 0.1 Baso # (Auto) 0.0 Abs Immat Gran (auto) 0.01 Absolute Neuts (auto) 5.3 Absolute Nucleated RBC 0.000 Nucleated RBC % (auto) 0.0 PT 11.7 INR 1.0 APTT Anion Gap 12 Estim Creat Clear Calc 89.8 Estimated GFR > 60 POC Glucose Random Glucose 87 Calcium 9.2 Total Bilirubin 0.6 AST 26 ALT 21 Alkaline Phosphatase 77 Total Creatine Kinase 414 H Troponin I High Sens Total Protein 7.3 Albumin 4.7 Urine Color Urine Appearance Urine pH Ur Specific [place] Urine Protein Urine Glucose (UA) Urine Ketones Urine Blood Urine Nitrite Ur Leukocyte Esterase COVID-19 ([facility]) COVID-19 Clin Com 02/05/22 02/05/22 02/06/22 23:50 23:50 00:17 MCV MCH MCHC RDW Plt Count MPV Immature Gran % (Auto) Neut % (Auto) Lymph % (Auto) [place] % (Auto) Eos % (Auto) Baso % (Auto) Lymph # (Auto) [place] # (Auto) Eos # (Auto) Baso # (Auto) Abs Immat Gran (auto) Absolute Neuts (auto) Absolute Nucleated RBC Nucleated RBC % (auto) PT INR APTT 33.4 Anion Gap Estim Creat Clear Calc Estimated GFR POC Glucose Random Glucose Calcium Total Bilirubin AST ALT Alkaline Phosphatase Total Creatine Kinase Troponin I High Sens 8.2 Total Protein Albumin Urine Color Urine Appearance Urine pH Ur Specific [place] Urine Protein Urine Glucose (UA) Urine Ketones Urine Blood Urine Nitrite Ur Leukocyte Esterase COVID-19 ([facility]) Negative COVID-19 Clin Com See Note 02/06/22 02/06/22 00:52 03:07 MCV MCH MCHC RDW Plt Count MPV Immature Gran % (Auto) Neut % (Auto) Lymph % (Auto) [place] % (Auto) Eos % (Auto) Baso % (Auto) Lymph # (Auto) [place] # (Auto) Eos # (Auto) Baso # (Auto) Abs Immat Gran (auto) Absolute Neuts (auto) Absolute Nucleated RBC Nucleated RBC % (auto) PT INR APTT Anion Gap Estim Creat Clear Calc Estimated GFR POC Glucose 102 Random Glucose Calcium Total Bilirubin AST ALT Alkaline Phosphatase Total Creatine Kinase Troponin I High Sens Total Protein Albumin Urine Color YELLOW Urine Appearance HAZY Urine pH 8.0 Ur Specific [place] 1.010 Urine Protein TRACE Urine Glucose (UA) NEG Urine Ketones NEG Urine Blood NEG Urine Nitrite NEG Ur Leukocyte Esterase NEG COVID-19 ([facility]) COVID-19 Clin Com Imaging Radiologist's Impressions: Impressions Head CT 02/06/22 00:06 IMPRESSION: No acute intracranial findings. This stroke protocol result was discussed with Dr. Hoffman on 02/06/2022 12:18 AM. Assessment and Plan (1) TIA (transient ischemic attack): Status: Acute (2) LUE weakness: Status: Acute (3) Headache: Status: Acute (4) Hypertension: Status: Acute Plan 41-year-old male with past medical history of hypertension presents to the hospital with TIA like symptoms # TIA - had numbness, weakness of the left upper extremity as well as facial numbness and tingling - reports hypertension - symptoms have not resolved - head CT negative - will obtain head and neck CTA - aspirin, statin - neurology consulted - hold off on MRI until neurology evaluation # hypertension - elevated - patient reports that he stop taking his antihypertensives about 5 years ago on his own - will monitor his BP in-patient, may require and antihypertensive prior to d ischarge dvt ppx; early ambulation Quality Stroke Does the patient have a stroke diagnosis?: No VTE Prior VTE?: No VTE Risk Level:: Medical - low VTE Device Contraindication: Treatment Not Indicated VTE Drug Contraindication: Treatment Not Indicated
[2022-02-06] MEDS: iohexoL 350 MG/ML 100 ML INFUS..BTL IV (06:05)
[2022-02-06 06:24] LABS: MANUAL DIFF FLAG NO
[2022-02-06 06:25] LABS: Basophils Percent Auto 0.4 % (0-2); Eosinophils Absolute Auto 0.1 X10*3/uL (0.0-0.4); Eosinophils Percent Auto 1.3 % (0-4); Hematocrit 40.7 % (42.0-52.0); Hemoglobin 13.4 g/dl (14.0-18.0); Imm Gran Abs Auto 0.01 X10*3/uL (0.00-0.03); Imm Gran Pct Auto 0.1 % (0.0-0.4); Lymphocytes Absolute Auto 2.6 X10*3/uL (1.2-4.9); Lymphocytes Percent Auto 34.6 % (20-40); Mean Corpuscular HGB Conc 32.9 g/dl (31.0-36.0); Mean Corpuscular Hemoglobin 28.7 pg (27.0-33.0); Mean Corpuscular Volume 87.2 fL (80.0-98.0); Monocytes Absolute Auto 0.8 X10*3/uL (0.1-1.2); Monocytes Percent Auto 10.6 % (2-11); Neutrophils Absolute Auto 4.1 x10*3/uL (2.0-8.3); Platelet Count 178 X10*3/uL (160-400); Red Blood Count 4.67 X10*6/uL (4.60-5.80); Red Cell Distribution Width 13.5 % (11.0-16.0); White Blood Count 7.6 X10*3/uL (4.8-10.8)
[2022-02-06 06:47] LABS: Anion Gap 8 (12-20); Blood Urea Nitrogen 8 mg/dL (9-16); Calcium 8.4 mg/dL (8.4-10.2); Carbon Dioxide 24 mmol/L (22-29); Chloride 107 mmol/L (96-108); Creatinine Clr Calc Pharmacy 96.8; Estimated Glomerular Filt Rate > 60; Glucose Random 91 mg/dL (60-115); Sodium 135 mmol/L (135-145)
[2022-02-06 06:52] LABS: Cholesterol 148 mg/dL; HDL Cholesterol 36 mg/dL; LDL Cholesterol Calculated 88 mg/dl; Triglycerides 121 mg/dL
[2022-02-06 07:09] VITALS: BP 174/105; PULSE 49; RESP 12; O2SAT 99
[2022-02-06 07:14] LABS: Glucose, Whole Blood 91 mg/dL (60-115)
[2022-02-06] MEDS: Aspirin Enteric Coated 81 MG TABLET.DR PO (08:01)
[2022-02-06] MEDS: Atorvastatin Calcium 40 MG TABLET PO (08:01)
[2022-02-06] MEDS: 0.9 % Sodium Chloride Flush 3 ML SYRINGE IVFLUSH (08:02)
--- NOTE | 2022-02-06 08:18 | PC.NURSE ---
Pt is A&Ox4, LCA, abd soft, non tender, +BS x4, no complaints of pain, tingling or numbness at this time. Pt questioning POC at this time, explained awaiting Neuro consult and he is admitted as obs patient at this time. Call adkins within reach, medicated as per [facility] orders. Will continue to monitor.
--- NOTE | 2022-02-06 09:39 | P.CNNE_ITS ---
History of Present Illness Data of Consult Service Date: 02/06/22 Primary Care Provider: Unknown Physician HPI Reason for consult: Left-sided numbness 41 years old man with previous history of hypertension but he was not taking any medicine for it stating that the medicine given to him previously resulted in side effects. He has been admitted in a hospital in [place] couple of years ago with similar symptoms and presentation. He was told that he should take a blood pressure medicine but he could not continue it. This time he was here with new onset of left-sided numbness. Numbness started in left side of the face and in about 6-7 minutes extended to involve the whole left side and lasted for few minutes. He thought he was having a stroke and came to emergency room. In emergency room his exam was nonfocal but he had full stroke workup done. Now he was feeling fine. Upon questioning, he also said that after the numbness was all over he had whopping headache in his whole head CT that lasted for few hours. He was not having frequent headaches. There was no recent cold or flu- like illness. Review of Systems Review of Systems: No recent cold or flu-like illness PMFSH Past Medical History Medical History (Updated 02/06/22 @ 09:42 by Angela Rhodes MD) HTN (hypertension) Family History Family History (Updated 02/06/22 @ 05:37 by Kimberlee Mosley MD) Father Brain aneurysm Surgical History Surgical History (Updated 02/06/22 @ 05:37 by Kimberlee Mosley MD) No pertinent past surgical history Social History Social History (Updated 02/06/22 @ 05:37 by Kimberlee Mosley MD) Alcohol intake: current Patient Tobacco Use Status: Never used Tobacco Substance Use Type: Marijuana Advance Directives: No Meds Allergies Allergy/AdvReac Type Severity Reaction Status Date / Time No Known Allergies Allergy Verified 10/27/21 07:07 Active Medications: Current Medications Acetaminophen (Acetaminophen 325 Mg Tablet) 650 mg PO Q6H PRN PRN Reason: Pain, Mild (Pain Scale 1-3) Aspirin (Aspirin Enteric Coated 81 Mg Tablet.) 81 mg PO DAILY [facility] Last Admin: 02/06/22 08:01 Dose: 81 mg Atorvastatin Calcium (Atorvastatin Calcium 40 Mg Tablet) 40 mg PO DAILY [facility] Last Admin: 02/06/22 08:01 Dose: 40 mg Docusate Sodium (Docusate Sodium 100 Mg Capsule) 100 mg PO DAILY PRN PRN Reason: Constipation Ondansetron HCl (Ondansetron Hcl 4 Mg/2 Ml Vial) 4 mg IVPUSH Q8H PRN PRN Reason: Nausea and Vomiting Sodium Chloride (0.9 % Sodium Chloride Flush 3 Ml Syringe) 3 ml IVFLUSH QSHIFT HEATHER Last Admin: 02/06/22 08:02 Dose: 3 ml Home Medications Medication Instructions Recorded Confirmed Last Taken Type No Known Home Meds 02/06/22 02/06/22 Unknown History Physical Exam Vital Signs: Vital Signs: Last Vital Signs Temp 97.8 F 02/06/22 03:11 Pulse 49 L 02/06/22 07:09 Resp 12 02/06/22 07:09 BP 174/105 H 02/06/22 07:09 Pulse Ox 99 02/06/22 07:09 O2 Del Method 02/06/22 07:09 BMI result Body Mass Index 28.7 Neuro: Other: Alert and awake with normal spontaneity of speech fluency comprehension and affect. Face was symmetrical. Visual andrade are full. There was no pronator drift. Deep tendon reflexes were trace to 1+ with flexor plantars. Speech was normal. Results Labs CBC & Chem 7: 02/06/22 06:19 02/06/22 06:19 Labs: Short CBC 02/05/22 02/06/22 Range/Units 23:50 06:19 WBC 8.9 7.6 (4.8-10.8) X10*3/uL Hgb 14.2 13.4 L (14.0-18.0) g/dl Hct 42.5 40.7 L (42.0-52.0) % Plt Count 191 178 (160-400) X10*3/uL BMP 02/05/22 02/06/22 23:50 06:19 Sodium 140 135 Potassium 4.0 4.0 Chloride 107 107 Carbon Dioxide 25 24 BUN 8 L 8 L Creatinine 1.25 1.16 Calcium 9.2 8.4 D Cardiac Enzymes 02/05/22 Range/Units 23:50 Total Creatine Kinase 414 H (38-174) U/L Liver Function 02/05/22 Range/Units 23:50 Total Bilirubin 0.6 (0.0-1.0) mg/dL AST 26 (5-37) U/L ALT 21 (0-40) U/L Alkaline Phosphatase 77 (39-117) U/L Albumin 4.7 (3.5-5.0) g/dL Urine 02/06/22 Range/Units 03:07 Urine Color YELLOW Urine Appearance HAZY Urine pH 8.0 (5.0-8.0) Ur Specific [place] 1.010 (1.005-1.025) Urine Protein TRACE (NEG-TRACE) MG/DL Urine Glucose (UA) NEG (NEG) MG/DL Noncontrast head CT was unremarkable. CTA of brain and neck did not reveal any significant abnormality. Assessment and Plan (1) Migraine with aura: Status: Acute 41 years old man who has clinical presentation was typical of migraine with aura. He was educated about this condition and was advised to avoid getting panicky and get treatment for migraine. At this time I only recommend sumatriptan 50 mg as needed, provided he would also take a blood pressure medicine. (2) Uncontrolled hypertension: Status: Acute His blood pressure was not controlled and previously given blood pressure medicine has resulted in side effects. I am not sure what medicine he was given and he did not remember. My suggestion is to start him on either a beta-yancy or calcium channel yancy such as were up. He should follow-up with his primary care physician and get appropriate follow-up and treatment for hypertension. Procedures Date of Service Date of Service: 02/06/22
[2022-02-06 10:31] VITALS: BP 164/99; PULSE 48; RESP 14; TEMP 36.7; O2SAT 97
--- NOTE | 2022-02-06 12:14 | PM.DS ---
DS: Providers Provider Date of Service: 02/06/22 Date of admission: 02/06/22 05:29 Date of discharge: 02/06/22 Primary care physician: Unknown Physician Consults: 02/06/22 05:31 Consult to Neurology Routine Consulting Provider: [facility] Reason for consultation: TIA Attending physician on discharge: Raffaele Rajan Discharging clinician: Anuja Philip DS: Diagnosis Discharge Diagnosis (1) Migraine with aura: Status: Acute (2) Uncontrolled hypertension: Status: Acute DS: Summary Hospital Course Hospital Course: From H&P on day of admission 31-year-old male with past medical history of hypertension who stopped taking his antihypertensives about 5 years ago presents the hospital with complaints of a headache, left facial as well as upper extremity numbness, tingling, as well as weakness for several hours.? Patient reports that had blurry vision, and severe left-sided headache with facial numbness, and left upper extremity numbness and weakness which concern him therefore he came to the hospital.? Patient denies any slurred speech, no chest pain, no palpitations, no abdominal pain nausea or vomiting, no diarrhea constipation, no urinary symptoms and no lower extremity edema.? Patient tells me that he? head really high blood pressure prior to coming to the hospital, when I asked him how high he reports high . ?on arrival to the ED patient's vitals are significant for blood pressure of 154/97, respiratory rate of 23, otherwise vitals stable Labs? reviewed, unremarkable ?patient reports that he is significantly better but still feels numbness of the tips of his fingers on the left ?neurology was consulted by ED, patient given aspirin and will be? admitted for further evaluation Left-sided numbness/weakness/headache. Brain CT, head and neck CTA unremarkable. Documented to the have mild left-sided weakness which had resolved at the time of admission. He was seen in consultation by Neurology who felt that his symptoms were secondary to migraine. His symptoms have completely resolved at this time. No other further workup is recommended at this time. Headache has resolved. Hypertension. Patient has history of hypertension in the past, stopped taking blood pressure medication several years ago. Does not currently have a PCP. Cannot remember previous antihypertensive. Will start Norvasc 5 mg daily. He is encouraged to find a PCP as he will need close follow-up for blood pressure monitoring. He was given the list of possible providers by Case Management and he is encouraged to call us is possible to schedule an appointment. Bradycardia. Heart rate was noted to be low. Patient has been asymptomatic. EKG showing sinus bradycardia. No further work up necessary at this time. Time Spent with Patient Time attestation: Total time spent providing and/or coordinating discharge services: Discharge coordination time: Greater than 30 minutes Quality: Safe Use of Opioids Does Pt have an Active Cancer Diagnosis on the Problem List?: No Quality: Stroke Does the patient have a stroke diagnosis?: No Physical Exam Vital Signs: Vital Signs: Last Vital Signs Temp 98.1 F 02/06/22 10:31 Pulse 48 L 02/06/22 10:31 Resp 14 02/06/22 10:31 BP 164/99 H 02/06/22 10:31 Pulse Ox 97 02/06/22 10:31 O2 Del Method 02/06/22 10:31 BMI result Body Mass Index 28.7 Const: General: cooperative, comfortable, alert and awake Nutritional Appearance: average body habitus Orientation/consciousness: patient oriented x3 Resp: Effort & Inspection: normal respiratory effort and able to speak in complete sentences Cardio: Rate: bradycardic Heart sounds: S1 normal heart sound present and S2 normal heart sound present GI: Palpation (GI): Soft to palpation and nontender Neuro: Other: Strength equal bilaterally General: patient oriented x3 and CN's II-XI intact bilaterally DS: Data Data Completed and Pending Labs on day of discharge: Laboratory Results - last 24 hr 02/05/22 02/05/22 02/05/22 23:50 23:50 23:50 WBC 8.9 RBC 4.95 Hgb 14.2 Hct 42.5 MCV 85.9 MCH 28.7 MCHC 33.4 RDW 13.5 Plt Count 191 MPV 9.9 Immature Gran % (Auto) 0.1 Neut % (Auto) 59.9 Lymph % (Auto) 29.1 [place] % (Auto) 9.9 Eos % (Auto) 0.6 Baso % (Auto) 0.4 Lymph # (Auto) 2.6 [place] # (Auto) 0.9 Eos # (Auto) 0.1 Baso # (Auto) 0.0 Abs Immat Gran (auto) 0.01 Absolute Neuts (auto) 5.3 Absolute Nucleated RBC 0.000 Nucleated RBC % (auto) 0.0 PT 11.7 INR 1.0 APTT Sodium 140 Potassium 4.0 Chloride 107 Carbon Dioxide 25 Anion Gap 12 BUN 8 L Creatinine 1.25 Estim Creat Clear Calc 89.8 Estimated GFR > 60 POC Glucose Random Glucose 87 Calcium 9.2 Total Bilirubin 0.6 AST 26 ALT 21 Alkaline Phosphatase 77 Total Creatine Kinase 414 H Troponin I High Sens Total Protein 7.3 Albumin 4.7 Triglycerides Cholesterol LDL Cholesterol, Calc HDL Cholesterol Urine Color Urine Appearance Urine pH Ur Specific [place] Urine Protein Urine Glucose (UA) Urine Ketones Urine Blood Urine Nitrite Ur Leukocyte Esterase COVID-19 ([facility]) COVID-19 Clin Com 02/05/22 02/05/22 02/06/22 23:50 23:50 00:17 WBC RBC Hgb Hct MCV MCH MCHC RDW Plt Count MPV Immature Gran % (Auto) Neut % (Auto) Lymph % (Auto) [place] % (Auto) Eos % (Auto) Baso % (Auto) Lymph # (Auto) [place] # (Auto) Eos # (Auto) Baso # (Auto) Abs Immat Gran (auto) Absolute Neuts (auto) Absolute Nucleated RBC Nucleated RBC % (auto) PT INR APTT 33.4 Sodium Potassium Chloride Carbon Dioxide Anion Gap BUN Creatinine Estim Creat Clear Calc Estimated GFR POC Glucose Random Glucose Calcium Total Bilirubin AST ALT Alkaline Phosphatase Total Creatine Kinase Troponin I High Sens 8.2 Total Protein Albumin Triglycerides Cholesterol LDL Cholesterol, Calc HDL Cholesterol Urine Color Urine Appearance Urine pH Ur Specific [place] Urine Protein Urine Glucose (UA) Urine Ketones Urine Blood Urine Nitrite Ur Leukocyte Esterase COVID-19 ([facility]) Negative COVID-19 Clin Com See Note 02/06/22 02/06/22 02/06/22 00:52 03:07 06:19 WBC 7.6 RBC 4.67 Hgb 13.4 L Hct 40.7 L MCV 87.2 MCH 28.7 MCHC 32.9 RDW 13.5 Plt Count 178 MPV 10.0 Immature Gran % (Auto) 0.1 Neut % (Auto) 53.0 Lymph % (Auto) 34.6 [place] % (Auto) 10.6 Eos % (Auto) 1.3 Baso % (Auto) 0.4 Lymph # (Auto) 2.6 [place] # (Auto) 0.8 Eos # (Auto) 0.1 Baso # (Auto) 0.0 Abs Immat Gran (auto) 0.01 Absolute Neuts (auto) 4.1 Absolute Nucleated RBC 0.000 Nucleated RBC % (auto) 0.0 PT INR APTT Sodium Potassium Chloride Carbon Dioxide Anion Gap BUN Creatinine Estim Creat Clear Calc Estimated GFR POC Glucose 102 Random Glucose Calcium Total Bilirubin AST ALT Alkaline Phosphatase Total Creatine Kinase Troponin I High Sens Total Protein Albumin Triglycerides Cholesterol LDL Cholesterol, Calc HDL Cholesterol Urine Color YELLOW Urine Appearance HAZY Urine pH 8.0 Ur Specific [place] 1.010 Urine Protein TRACE Urine Glucose (UA) NEG Urine Ketones NEG Urine Blood NEG Urine Nitrite NEG Ur Leukocyte Esterase NEG COVID-19 ([facility]) COVID-19 [place] 02/06/22 02/06/22 02/06/22 06:19 06:19 07:08 WBC RBC Hgb Hct MCV MCH MCHC RDW Plt Count MPV Immature Gran % (Auto) Neut % (Auto) Lymph % (Auto) [place] % (Auto) Eos % (Auto) Baso % (Auto) Lymph # (Auto) [place] # (Auto) Eos # (Auto) Baso # (Auto) Abs Immat Gran (auto) Absolute Neuts (auto) Absolute Nucleated RBC Nucleated RBC % (auto) PT INR APTT Sodium 135 Potassium 4.0 Chloride 107 Carbon Dioxide 24 Anion Gap 8 L BUN 8 L Creatinine 1.16 Estim Creat Clear Calc 96.8 Estimated GFR > 60 POC Glucose 91 Random Glucose 91 Calcium 8.4 D Total Bilirubin AST ALT Alkaline Phosphatase Total Creatine Kinase Troponin I High Sens Total Protein Albumin Triglycerides 121 Cholesterol 148 LDL Cholesterol, Calc 88 HDL Cholesterol 36 Urine Color Urine Appearance Urine pH Ur Specific [place] Urine Protein Urine Glucose (UA) Urine Ketones Urine Blood Urine Nitrite Ur Leukocyte Esterase COVID-19 ([facility]) COVID-19 Clin Com Discharge Plan Discharge Patient Disposition: Home, Self-Care Referrals: Physician,Unknown J [Primary Care Provider] - 1 Week Discharge Medications: New amlodipine [Norvasc] 5 mg tablet 5 mg PO DAILY 30 Days Qty: 30 0RF Discharge Orders: Discharge Order (Routine); Ordered 02/06/22 Ordered By: Anuja Philip Activity on Discharge: As tolerated Stand Alone Forms: Patient Portal Discharge page, Work/School Release Care Plan Goals: See below Health Concerns: Migraine Uncontrolled high blood pressure sinus bradycardia Plan of Treatment: Start taking Norvasc as prescribed to control blood pressure Will need close outpatient follow-up to monitor blood pressure and adjust medication as needed Call providers from [facility] obtain PCP Assessment: See discharge summary Discharge Date/Time: 02/06/22 17:57
--- NOTE | 2022-02-06 12:54 | MHC.CM.PN ---
Met with patient in regards to discharge planning. Patient lives with his sig other, ambulates independently and had no services prior to coming to the hospital. No services anticipated to be needed because patient is not homebound. Patient denies having a PCP. List of PCP's contracted with patient's insurance and accepting new insurance provided. Patient denies having a HCP. Declining to complete one at this time. Patient did not receive any Covid vaccines. Obs notice explained and signed. Patient's sig other will transport patient home. Patient requesting work note. Anuja MARTIN aware. Continue to monitor for d/c needs.
== END 2022-02-06 17:57 | disposition home or self-care (01) ==
LOC: HO.ED 02-06 03:18 → HO.EDOVER 02-06 05:34
PROVIDERS: Admitting Provider Internal Medicine; Emergency Provider Student in an Organized Health Care Education/Training Program; Visit Provider Physician Assistant Medical
DX: G43.109 Migraine with aura, not intractable, without status migrainosus (principal); R00.1 Bradycardia, unspecified; R29.898 Other symptoms and signs involving the musculoskeletal system; I10 Essential (primary) hypertension; R53.1 Weakness; H53.8 Other visual disturbances; Z20.822 Contact with and (suspected) exposure to COVID-19; Z79.899 Other long term (current) drug therapy
CPT/HCPCS: 36415; 70450; 70496; 70498; 80048; 80053; 80061; 81003; 82550; 82947; 84484; 85025; 85610; 85730; 87635; 93005; 96374; 99218; 99285; Q9967

== ENCOUNTER 2022-02-11 06:10 | Emergency (ER) | payer OTHER, SELFPAY ==
[2022-02-11 06:27] VITALS: BP 176/108; PULSE 68; RESP 20; TEMP 36.8; O2SAT 94; BMI 29.4
[2022-02-11 11:26] LABS: MANUAL DIFF FLAG NO
[2022-02-11 11:34] LABS: Basophils Percent Auto 0.5 % (0-2); Eosinophils Absolute Auto 0.1 X10*3/uL (0.0-0.4); Eosinophils Percent Auto 0.9 % (0-4); Hematocrit 43.4 % (42.0-52.0); Hemoglobin 14.7 g/dl (14.0-18.0); Imm Gran Abs Auto 0.04 X10*3/uL (0.00-0.03); Imm Gran Pct Auto 0.5 % (0.0-0.4); Lymphocytes Absolute Auto 2.4 X10*3/uL (1.2-4.9); Lymphocytes Percent Auto 26.8 % (20-40); Mean Corpuscular HGB Conc 33.9 g/dl (31.0-36.0); Mean Corpuscular Hemoglobin 29.1 pg (27.0-33.0); Mean Corpuscular Volume 85.9 fL (80.0-98.0); Mean Platelet Volume 10.3 fL (9.4-12.4); Monocytes Absolute Auto 0.7 X10*3/uL (0.1-1.2); Neutrophils Absolute Auto 5.6 x10*3/uL (2.0-8.3); Neutrophils Percent Auto 63.3 % (45-73); Platelet Count 188 X10*3/uL (160-400); Red Blood Count 5.05 X10*6/uL (4.60-5.80); Red Cell Distribution Width 13.5 % (11.0-16.0); White Blood Count 8.8 X10*3/uL (4.8-10.8)
[2022-02-11 11:45] LABS: Anion Gap 9 (12-20); Blood Urea Nitrogen 12 mg/dL (9-16); Calcium 9.3 mg/dL (8.4-10.2); Carbon Dioxide 27 mmol/L (22-29); Chloride 107 mmol/L (96-108); Creatinine Clr Calc Pharmacy 109.2; Estimated Glomerular Filt Rate > 60; Glucose Random 92 mg/dL (60-115); Potassium 4.1 mmol/L (3.3-5.1); Sodium 139 mmol/L (135-145)
--- NOTE | 2022-02-11 12:07 | ED.GENADULT ---
HPI - General Adult General Chief complaint: General Medical Stated complaint: stroke symptoms? Time Seen by Provider: 02/11/22 06:25 Source: patient Mode of arrival: ambulatory Limitations: no limitations History of Present Illness HPI narrative: 41-year-old male presents emergency department with acute on chronic left-sided headache. Patient seen here within the past week had a complete stroke workup including CTA CT and was seen by Neurology and deemed this is a migraine. Patient states that his father passed from ruptured aneurysm at 26 and since then he has been concern any time that he has headache he states he has chronic left-sided headaches he also has high blood pressure which he has left uncontrolled for years he was started on amlodipine during his previous visit and was recommended to try sumatriptan but was not sent home with a script for this. Patient states he has tried established primary doctor but has unsuccessful he states the headache started again yesterday continue to be worsened headache stand similar to when he was here last time from left side with his left shoulder. Denies any fevers or chills he has no trauma or falls he denies any changes in vision or blurry vision Related Data Previous Rx's Medication Instructions Recorded amlodipine 5 mg tablet (Norvasc) 5 mg PO DAILY 30 days #30 tabs 02/06/22 amlodipine 5 mg tablet 5 mg PO BID #120 tabs 02/11/22 sumatriptan succinate 100 mg tablet 100 mg PO Q2-4H PRN migraine 02/11/22 headache 2 doses #60 tabs Allergies Allergy/AdvReac Type Severity Reaction Status Date / Time No Known Allergies Allergy Verified 10/27/21 07:07 Review of Systems Review of Systems: Review of systems: General: Patient denies any fever chills recent illness or falls Musculoskeletal: Denies back pain or body aches or other injuries HEENT: headache, denies runny nose, ear pain Respiratory: denies shortness of breath, cough Cardiovascular: no chest pain or palpitations : denies dysuria, frequency Abdomen: no nausea vomiting denies abdominal pain Extremities: no swelling, no pain Skin: no diaphoresis Yes all other systems are reviewed and are negative [facility] Past Medical History Medical History (Updated 02/11/22 @ 12:10 by Mio Victor DO) HTN (hypertension) Surgical History (Updated 02/06/22 @ 05:37 by Kimberlee Mosley MD) No pertinent past surgical history Family History Family History (Updated 02/06/22 @ 05:37 by Kimberlee Mosley MD) Father Brain aneurysm Social History Social History (Updated 02/06/22 @ 05:37 by Kimberlee Mosley MD) Alcohol intake: current Patient Tobacco Use Status: Never used Tobacco Substance Use Type: Marijuana Advance Directives: No Advance Directives Information Provided: Yes service: No Current occupational status: employed Physical Exam ED Vital Signs: Vital Signs - 24 hr 02/11/22 06:27 Temperature 98.3 F Pulse Rate 68 Respiratory Rate 20 Blood Pressure 176/108 H Pulse Oximetry 94 Oxygen Delivery Method Room Air BMI result Body Mass Index 29.4 Ignacio Victor?< > Thu, Sep 21, 2018, 4:54 PM to?me Neurological exam: CN II- XII tested. Patient is alert and oriented to person place and time. Patient has no dysphagia or dysarthia, denies good vision in all four vision andrade no nystagmus on exam, good strength to upper and lower extremities with normal reflexes to brachioradialis, wrist, patella and achilles.? Negative romberg, good finger to nose and heel to galdamez.?? General: Well-appearing well-nourished in no signs of distress HEENT: Normocephalic atraumatic? Neck: No signs of JVD, no masses no tenderness or lymphadenopathy Cardiovascular: Regular rate and rhythm Respiratory: Clear to auscultation bilaterally Abdomen: Soft nontender no masses Extremities: Normal pedal pulses no signs of edema Skin: Dry warm no rashes Back: No tenderness full ROM Medical Decision Making MDM Narrative Medical decision making narrative: Attempted to reassure the patient the note from Neurology literally says that the patient needs to be less panicky when his symptoms do come on he was not sent home with anything for his headache so I think that is part of the problem. Patient has no fevers or chills no numbness no weakness no pain to his neck or back. I do not think this is acute stroke and patient has CTA showing that he has no aneurysms the last week does have follow-up with Neurology. I will give the patient Reglan Benadryl Toradol fluids and see if I get the patient feeling better. 1327 patient again reassured explained previous results need follow-up with Neurology patient sleeping in the bed comfortably I will discharge home with a work note for the next several days. Lab Data Result diagrams: 02/11/22 11:19 02/11/22 11:19 Labs: Lab Results 02/11/22 02/11/22 Range/Units 11:19 11:19 WBC 8.8 (4.8-10.8) X10*3/uL RBC 5.05 (4.60-5.80) X10*6/uL Hgb 14.7 (14.0-18.0) g/dl Hct 43.4 (42.0-52.0) % MCV 85.9 (80.0-98.0) fL MCH 29.1 (27.0-33.0) pg MCHC 33.9 (31.0-36.0) g/dl RDW 13.5 (11.0-16.0) % Plt Count 188 (160-400) X10*3/uL MPV 10.3 (9.4-12.4) fL Immature Gran % (Auto) 0.5 H (0.0-0.4) % Neut % (Auto) 63.3 (45-73) % Lymph % (Auto) 26.8 (20-40) % [place] % (Auto) 8.0 (2-11) % Eos % (Auto) 0.9 (0-4) % Baso % (Auto) 0.5 (0-2) % Lymph # (Auto) 2.4 (1.2-4.9) X10*3/uL [place] # (Auto) 0.7 (0.1-1.2) X10*3/uL Eos # (Auto) 0.1 (0.0-0.4) X10*3/uL Baso # (Auto) 0.0 (0.0-0.2) X10*3/uL Abs Immat Gran (auto) 0.04 H (0.00-0.03) X10*3/uL Absolute Neuts (auto) 5.6 (2.0-8.3) x10*3/uL Absolute Nucleated RBC 0.000 (0.0-0.012) X10*3/uL Nucleated RBC % (auto) 0.0 (0.0-0.2) /100WBC Sodium 139 (135-145) mmol/L Potassium 4.1 (3.3-5.1) mmol/L Chloride 107 (96-108) mmol/L Carbon Dioxide 27 (22-29) mmol/L Anion Gap 9 L (12-20) BUN 12 (9-16) mg/dL Creatinine 1.04 (0.5-1.4) mg/dL Estim Creat Clear Calc 109.2 Estimated GFR > 60 Random Glucose 92 (60-115) mg/dL Calcium 9.3 D (8.4-10.2) mg/dL Discharge Plan Discharge Clinical Impression: Headache, Uncontrolled hypertension Patient Disposition: Home, Self-Care Additional Instructions: Please call to follow up. If you have any other concerns please return to the ED. Prescriptions: New sumatriptan succinate 100 mg tablet 100 mg PO Q2-4H PRN (Reason: migraine headache) Qty: 60 0RF Rx Instructions: do not exceed 2 doses per 24 hrs amlodipine 5 mg tablet 5 mg PO BID Qty: 120 0RF No Action amlodipine [Norvasc] 5 mg tablet 5 mg PO DAILY 30 Days Qty: 30 0RF Referrals: Angela Rhodes MD [Physician] - (Please call to follow up for your headache.) Stand Alone Forms: Work/School Release
[2022-02-11] MEDS: diphenhydrAMINE HCL 50 MG/ML VIAL 25 MG IVPUSH (12:17)
[2022-02-11] MEDS: Acetaminophen 325 MG TABLET 650 MG PO (12:17)
[2022-02-11] MEDS: Metoclopramide HCl 10 MG/2 ML VIAL IVPUSH (12:17)
[2022-02-11] MEDS: 0.9 % Sodium Chloride 1,000 ML 999 ML IV (12:17)
[2022-02-11] MEDS: Ketorolac Tromethamine 15 MG/ML VIAL IVPUSH (12:17)
[2022-02-11 14:00] VITALS: BP 150/80; PULSE 76; RESP 16
== END 2022-02-11 15:31 | disposition home or self-care (01) ==
PROVIDERS: Emergency Medicine; Emergency Provider Student in an Organized Health Care Education/Training Program
DX: R51.9 Headache, unspecified (principal); I10 Essential (primary) hypertension
CPT/HCPCS: 36415; 80048; 85025; 96361; 96374; 96375; 99284; J1200; J1885; J2765

== ENCOUNTER 2022-02-15 02:05 | Emergency (ER) | payer OTHER, SELFPAY ==
[2022-02-15 02:13] VITALS: BP 140/84; PULSE 63; RESP 14; TEMP 36.9; O2SAT 97; BMI 29.5
--- NOTE | 2022-02-15 05:04 | ED.HA ---
HPI - Headache General Chief Complaint: Headache Stated Complaint: Headache Time Seen by Provider: 02/15/22 05:01 Source: patient and old records reviewed Mode of arrival: ambulatory Limitations: no limitations History of Present Illness HPI Narrative: 41 yo male with hx of HTN, TIA - recent full workup for stroke with CTA negative for aneurysm here with c/o L sided headache has had this in the past happens during the summer on and off for weeks a at time. His father had the same thing. He is now taking his amlodipine. He tried sumatriptan without relief today. MD elicited complaint: headache Pertinent past history: hypertension Onset (ago): week(s) (1) Onset description: suddenly and while at rest Location: left, frontal, temporal and down into neck Severity: moderate Quality & Timing: throbbing and progressively worsening Exacerbating factors: sitting/standing, light and noise Relieving factors: rest Context: occurred at rest Associated symptoms: nausea and vomiting Treatments prior to arrival: migraine medication Related Data Previous Rx's Medication Instructions Recorded amlodipine 5 mg tablet (Norvasc) 5 mg PO DAILY 30 days #30 tabs 02/06/22 amlodipine 5 mg tablet 5 mg PO BID #120 tabs 02/11/22 sumatriptan succinate 100 mg tablet 100 mg PO Q2-4H PRN migraine 02/11/22 headache 2 doses #60 tabs xvjojlqhbt-mgjcuntljnada-uivfyope 1 cap PO Q8H PRN pain #20 caps 02/15/22 50 mg-300 mg-40 mg capsule (Fioricet) metoclopramide HCl 10 mg tablet 10 mg PO Q6H PRN nausea and 02/15/22 (Reglan) vomiting #30 tabs Allergies Allergy/AdvReac Type Severity Reaction Status Date / Time No Known Allergies Allergy Verified 10/27/21 07:07 Review of Systems Review of Systems: Constitutional : No Fever, No Chills, No Fatigue ENT/Mouth : No sore throat, No Rhinorrhea Eyes: No Eye Pain, No Swelling, No Redness Cardiovascular : No Chest Pain, No SOB, No Dyspnea on Exertion Respiratory : No Cough, No Sputum Gastrointestinal : pos Nausea, pos Vomiting, No Diarrhea, No abdominal Pain Genitourinary : No Dysuria, No Urinary Frequency, No Hematuria, Musculoskeletal : No joint pain, No Myalgias, No Joint Swelling Skin : No Skin Lesions, No rash Neuro : No Weakness, No Numbness, No Dizziness, positive Headache Psych : No Anxiety/Panic, No Depression Heme/Lymph: No Bruising, No Bleeding,No Lymphadenopathy Endocrine : No Polyuria, No Polydipsia All other systems reviewed and are negative [facility] Past Medical History Attestation statement: The following information was validated with the patient. Medical History HTN (hypertension) TIA (transient ischemic attack) Surgical History (Updated 02/06/22 @ 05:37 by Kimberlee Mosley MD) No pertinent past surgical history Family History Family History (Updated 02/06/22 @ 05:37 by Kimberlee Mosley MD) Father Brain aneurysm Social History Social History Alcohol intake: current Patient Tobacco Use Status: Never used Tobacco Substance Use Type: Marijuana Advance Directives: No Advance Directives Information Provided: No service: No Current occupational status: employed Physical Exam Vital Signs: Vital Signs: Last Vital Signs Temp 98.4 F 02/15/22 02:13 Pulse 56 02/15/22 05:20 Resp 18 02/15/22 05:20 BP 157/97 H 02/15/22 05:20 Pulse Ox 98 02/15/22 05:20 O2 Del Method 02/15/22 05:20 BMI result Body Mass Index 29.5 Appearance: Alert. Oriented X3. No acute distress. Eyes: Pupils equal, round and reactive to light. photophobic ENT: Pharynx normal. Neck: Normal inspection. Neck supple. CVS: Normal heart rate and rhythm. Pulses normal. Respiratory: No respiratory distress. Breath sounds normal. Abdomen: Soft and nontender. Skin: Skin warm and dry. Normal skin color. Normal skin turgor. Extremities: No lower extremity edema. No calf ttp Neuro: Oriented X 3. No motor deficit. No sensory deficit. Course Course Course Narrative: does feel better after oxygen MDM - Headache MDM Narrative Medical decision making narrative: 41 yo male with hx of HTN, TIA compliant with amlodipine has headaches during the summer weeks at a time then will resolve - father had similar bouts. Just had full stroke workup including CTA so no aneurysm detected. At this time I suspect he has cluster headaches. He is already on sumatriptan will start on oxygen and offer other medications Discharge Plan Discharge Clinical Impression: Cluster headache Qualifiers: Headache chronicity pattern: episodic headache Intractability: not intractable Qualified Code(s): G44.019 - Episodic cluster headache, not intractable Patient Disposition: Home, Self-Care Instructions: Cluster Headache (ED) Additional Instructions: return to ED for any worsening symptoms or concerns please follow up with neurologist Prescriptions: New metoclopramide HCl [Reglan] 10 mg tablet 10 mg PO Q6H PRN (Reason: nausea and vomiting) Qty: 30 0RF ywedckucbn-cymbletqruelu-twtm [Fioricet] 50-300-40 mg capsule 1 cap PO Q8H PRN (Reason: pain) Qty: 20 0RF Rx Instructions: partial fill okay No Action amlodipine [Norvasc] 5 mg tablet 5 mg PO DAILY 30 Days Qty: 30 0RF sumatriptan succinate 100 mg tablet 100 mg PO Q2-4H PRN (Reason: migraine headache) Qty: 60 0RF Rx Instructions: do not exceed 2 doses per 24 hrs amlodipine 5 mg tablet 5 mg PO BID Qty: 120 0RF Referrals: Angela Rhodes MD [Physician] - 2 weeks (Neurologist follow up with appointment)
[2022-02-15 05:20] VITALS: BP 157/97; PULSE 56; RESP 18; O2SAT 98
[2022-02-15] MEDS: Metoclopramide HCl 10 MG TABLET PO (05:25)
[2022-02-15] MEDS: Ibuprofen 600 MG TABLET PO (05:25)
[2022-02-15] MEDS: diphenhydrAMINE HCL 25 MG TABLET PO (05:25)
== END 2022-02-15 06:27 | disposition home or self-care (01) ==
PROVIDERS: Emergency Provider Emergency Medicine
DX: G44.019 Episodic cluster headache, not intractable (principal); I10 Essential (primary) hypertension; F12.90 Cannabis use, unspecified, uncomplicated
CPT/HCPCS: 99283; Q0163

== ENCOUNTER 2022-02-28 01:30 | Emergency (ER) | payer OTHER, SELFPAY ==
[2022-02-28 01:35] VITALS: BP 122/80; PULSE 58; RESP 16; TEMP 36.8; BMI 29.4
--- NOTE | 2022-02-28 04:13 | ED.MEDCLEAR ---
HPI - Medical Clearance General Chief complaint: Medical Clearance Stated complaint: med refill Time Seen by Provider: 02/28/22 04:13 History of Present Illness HPI Narrative: Patient has a history of hypertension baseline is on amlodipine. He takes 5 mg every day. He is running out of his medication presents to the ED wanting a refill of his amlodipine. Also has a history nausea vomiting migraine headache and is on Reglan from time to time. Presenting wanting a prescription for Reglan. Patient denies any fever chills chest pain shortness of breath nausea vomiting headaches. Related Information Previous Rx's Medication Instructions Recorded amlodipine 5 mg tablet (Norvasc) 5 mg PO DAILY 30 days #30 tabs 02/06/22 amlodipine 5 mg tablet 5 mg PO BID #120 tabs 02/11/22 sumatriptan succinate 100 mg tablet 100 mg PO Q2-4H PRN migraine 02/11/22 headache 2 doses #60 tabs uwppluprwr-zqnmqxdolcugm-mfjzxosp 1 cap PO Q8H PRN pain #20 caps 02/15/22 50 mg-300 mg-40 mg capsule (Fioricet) metoclopramide HCl 10 mg tablet 10 mg PO Q6H PRN nausea and 02/15/22 (Reglan) vomiting #30 tabs amlodipine 5 mg tablet 5 mg PO DAILY #14 tabs 02/28/22 metoclopramide HCl 10 mg tablet 10 mg PO Q6H PRN nausea and 02/28/22 (Reglan) vomiting #14 tabs Allergies Allergy/AdvReac Type Severity Reaction Status Date / Time No Known Allergies Allergy Verified 10/27/21 07:07 Review of Systems Review of Systems: No fever no chills no chest pain or shortness breath no systemic complaints Yes all other systems are reviewed and are negative [facility] Past Medical History Attestation statement: The following information was validated with the patient. Medical History HTN (hypertension) TIA (transient ischemic attack) Surgical History No pertinent past surgical history Family History Family History Father Brain aneurysm Social History Social History Alcohol intake: current Patient Tobacco Use Status: Never used Tobacco Substance Use Type: Marijuana service: No Current occupational status: employed Physical Exam Vital Signs: Vital Signs: Last Vital Signs Temp 98.2 F 02/28/22 01:35 Pulse 58 02/28/22 01:35 Resp 16 02/28/22 01:35 BP 122/80 02/28/22 01:35 O2 Del Method 02/28/22 01:35 BMI result Body Mass Index 29.4 Appearance: Alert. Oriented X3. No acute distress. Eyes: Pupils equal, round and reactive to light. ENT: Pharynx normal. Neck: Normal inspection. Neck supple. No lymph nodes noted. No crepitus CVS: Normal heart rate and rhythm. Pulses normal. Normal S1 and S2 Respiratory: No respiratory distress. Breath sounds normal. No Wheezing. No rales Abdomen: Soft and nontender. No rigidity. No distention. good BS x4 Skin: Skin warm and dry. Normal skin color. Normal skin turgor. Extremities: No lower extremity edema. Neurovascular intact to all extremities. No Lacerations. No Rash Neuro: Oriented X 3. No motor deficit. No sensory deficit. Moving all extermities. No slurred speech MDM - Medical Clearance MDM Narrative Medical decision making narrative: Patient was in the emergency department previously and had the prescription filled by the ED. Will ask patient to closely follow up with his primary physician. Will give additional 2 weeks with the medication. Patient is currently in stable condition. Blood pressure is controlled no distress. No symptoms. In stable condition with discharge home Discharge Plan Discharge Clinical Impression: Hypertension Patient Disposition: Home, Self-Care Instructions: Hypertension (ED) Prescriptions: New amlodipine 5 mg tablet 5 mg PO DAILY Qty: 14 0RF metoclopramide HCl [Reglan] 10 mg tablet 10 mg PO Q6H PRN (Reason: nausea and vomiting) Qty: 14 0RF No Action amlodipine [Norvasc] 5 mg tablet 5 mg PO DAILY 30 Days Qty: 30 0RF sumatriptan succinate 100 mg tablet 100 mg PO Q2-4H PRN (Reason: migraine headache) Qty: 60 0RF Rx Instructions: do not exceed 2 doses per 24 hrs amlodipine 5 mg tablet 5 mg PO BID Qty: 120 0RF metoclopramide HCl [Reglan] 10 mg tablet 10 mg PO Q6H PRN (Reason: nausea and vomiting) Qty: 30 0RF ifadrdxfvd-vcsnaivsnjjev-lwpb [Fioricet] 50-300-40 mg capsule 1 cap PO Q8H PRN (Reason: pain) Qty: 20 0RF Rx Instructions: partial fill okay Referrals: Physician,Unknown J [Primary Care Provider] - (Please follow-up with your primary physician in the next week)
== END 2022-02-28 04:22 | disposition home or self-care (01) ==
PROVIDERS: Emergency Provider Emergency Medicine Emergency Medical Services; PCP Internal Medicine
DX: Z76.0 Encounter for issue of repeat prescription (principal); I10 Essential (primary) hypertension; Z79.899 Other long term (current) drug therapy
CPT/HCPCS: 99282

== ENCOUNTER 2022-08-23 01:23 | Emergency (ER) | payer OTHER, SELFPAY ==
[2022-08-23 01:26] VITALS: BP 140/98; PULSE 69; RESP 16; TEMP 36.7; O2SAT 98; BMI 30.1
[2022-08-23 02:01] VITALS: BP 134/90; PULSE 62; RESP 16; TEMP 36.6; O2SAT 97
[2022-08-23 02:21] LABS: Influenza A PCR NEGATIVE (Negative); Influenza B PCR NEGATIVE (Negative); Resp Syncy Virus RNA Qual PCR NEGATIVE (Negative); SARS COV2 PCR INHOUSE NEGATIVE (Negative)
--- NOTE | 2022-08-23 02:35 | PC.NURSE ---
nursing assessment: Pt is a/o x4, pt came in presenting abd pain/ cramping 10/10 and nausea. Pt dinies vomiting and diarrhea. Pt has soft abd and normal bowel sound. Pt V/ S are stable, and afribile.
--- NOTE | 2022-08-23 02:49 | ED.GENADULT ---
HPI - General Adult General Chief complaint: Nausea/Vomiting/Diarrhea Stated complaint: flu like symptoms Time Seen by Provider: 08/23/22 02:02 Source: patient Mode of arrival: ambulatory Limitations: no limitations History of Present Illness HPI narrative: Patient with nasal congestion headache body aches for last few days his girlfriend was sick 1 week ago with same also complaining of upper abdominal discomfort with nausea no fever no chills patient is not vaccinated against COVID Related Data Previous Rx's Medication Instructions Recorded amlodipine 5 mg tablet (Norvasc) 5 mg PO DAILY 30 days #30 tabs 02/06/22 amlodipine 5 mg tablet 5 mg PO BID #120 tabs 02/11/22 sumatriptan succinate 100 mg tablet 100 mg PO Q2-4H PRN migraine 02/11/22 headache 2 doses #60 tabs shzsbynfsu-kdkauixfkayam-sllcovzy 1 cap PO Q8H PRN pain #20 caps 02/15/22 50 mg-300 mg-40 mg capsule (Fioricet) metoclopramide HCl 10 mg tablet 10 mg PO Q6H PRN nausea and 02/15/22 (Reglan) vomiting #30 tabs amlodipine 5 mg tablet 5 mg PO DAILY #14 tabs 02/28/22 metoclopramide HCl 10 mg tablet 10 mg PO Q6H PRN nausea and 02/28/22 (Reglan) vomiting #14 tabs amoxicillin 875 mg-potassium 1 tab PO BID #20 tabs 08/23/22 clavulanate 125 mg tablet Allergies Allergy/AdvReac Type Severity Reaction Status Date / Time No Known Allergies Allergy Verified 08/23/22 01:30 Review of Systems Review of Systems: Yes all other systems are reviewed and are negative [facility] Past Medical History Medical History HTN (hypertension) TIA (transient ischemic attack) Surgical History No pertinent past surgical history Family History Family History Father Brain aneurysm Social History Social History Alcohol intake: current Alcohol intake frequency: does not drink Patient Tobacco Use Status: Never used Tobacco Smoked in Last 30 Days: Yes Use of substances other than those prescribed or required for medical reasons: Yes Substance Use Type: Marijuana Advance Directives: No Advance Directives Information Provided: Yes service: No Current occupational status: employed Physical Exam ED Vital Signs: Vital Signs - 24 hr 08/23/22 01:26 08/23/22 02:01 Temperature 98.1 F 98 F Pulse Rate 69 62 Respiratory Rate 16 16 Blood Pressure 140/98 H 134/90 H Pulse Oximetry 98 97 Oxygen Delivery Method Room Air Room Air BMI result Body Mass Index 30.1 Appearance: Alert. Oriented X3. No acute distress. Eyes: PERRLA, No Nystagmus ENT: Pharynx normal. Oral Mucosa moist inflamed turbinates and clear nasal discharge Neck: Normal inspection. Neck supple. CVS: Normal heart rate and rhythm. Pulses normal. Respiratory: No respiratory distress. Equal air entry bilateral, no wheezing/rales/rhonchi Abdomen: Soft and mild epigastric tenderness. Bowel sounds are present, no mass palpable, no CVA tenderness Skin: Skin warm and dry. Normal skin color. Normal skin turgor. Extremities: No lower extremity edema. No calf tenderness Neuro: Oriented X 3. No motor deficit. Medications Administered Discontinued Medications Generic Name Dose Route Start Last Admin Trade Name Freq PRN Reason Stop Dose Admin Dicyclomine HCl 20 mg 08/23/22 02:50 08/23/22 03:14 Dicyclomine Hcl 10 Mg Capsule PO 08/23/22 02:51 20 mg ONCE ONE Administration Ibuprofen 600 mg 08/23/22 02:50 08/23/22 03:14 Ibuprofen 600 Mg Tablet PO 08/23/22 02:51 600 mg ONCE ONE Administration Medical Decision Making Lab Data [facility] Lab Attestation statement: I reviewed the patient's lab results. Labs: Lab Results 08/23/22 08/23/22 Range/Units 01:38 03:16 Influenza Type A (PCR) NEGATIVE (Negative) Influenza Type B (PCR) NEGATIVE (Negative) RSV RNA Qual (PCR) NEGATIVE (Negative) SARS-CoV-2 RNA (RT-PCR) NEGATIVE (Negative) S. pyogenes GrpA HANK Negative (Negative) Discharge Plan Discharge Clinical Impression: Acute rhinosinusitis Patient Disposition: Home, Self-Care Additional Instructions: Drink plenty of fluids Take antibiotic as prescribed for sinus infection Follow with PCP Prescriptions: New amoxicillin-pot clavulanate 875-125 mg tablet 1 tab PO BID Qty: 20 0RF No Action amlodipine [Norvasc] 5 mg tablet 5 mg PO DAILY 30 Days Qty: 30 0RF amlodipine 5 mg tablet 5 mg PO DAILY Qty: 14 0RF metoclopramide HCl [Reglan] 10 mg tablet 10 mg PO Q6H PRN (Reason: nausea and vomiting) Qty: 14 0RF sumatriptan succinate 100 mg tablet 100 mg PO Q2-4H PRN (Reason: migraine headache) Qty: 60 0RF Rx Instructions: do not exceed 2 doses per 24 hrs amlodipine 5 mg tablet 5 mg PO BID Qty: 120 0RF metoclopramide HCl [Reglan] 10 mg tablet 10 mg PO Q6H PRN (Reason: nausea and vomiting) Qty: 30 0RF luricioncz-gajydauyjtqcc-bhdj [Fioricet] 50-300-40 mg capsule 1 cap PO Q8H PRN (Reason: pain) Qty: 20 0RF Rx Instructions: partial fill okay
[2022-08-23] MEDS: Ibuprofen 600 MG TABLET PO (03:14)
[2022-08-23] MEDS: Dicyclomine HCl 10 MG CAPSULE 20 MG PO (03:14)
[2022-08-23 03:32] LABS: IDNOW Serial# 6674DD1D; Strep A Nucleic Acid Negative (Negative)
[2022-08-23] MEDS: Butalb/Acetamin/Caff 50/325/40 TABLET 1 TAB PO (03:56)
[2022-08-23] MEDS: Amoxicillin/Potassium Clav 875 MG TABLET PO (03:56)
== END 2022-08-23 03:58 | disposition home or self-care (01) ==
PROVIDERS: Emergency Provider Internal Medicine; PCP Internal Medicine
DX: J01.90 Acute sinusitis, unspecified (principal); Z20.822 Contact with and (suspected) exposure to COVID-19; Z20.828 Contact with and (suspected) exposure to other viral communicable diseases
CPT/HCPCS: 0241U; 36415; 87651; 99283; 99284